=== PATIENT | female | born 1950 | race Caucasian/White ===

== ENCOUNTER 2022-05-01 16:09 | Inpatient (IN) | payer OTHER ==
[~2022-05-01] VITALS: Ht 170.2 cm; Wt 230.0 kg
[2022-05-01 16:22] VITALS: BP_SYST 106
[2022-05-01 18:17] LABS: BASOPHILS % (AUTO) 0.5 % (0.0-2.0); EOSINOPHILS # (AUTO) 0.2 K/uL (0.0-0.4); EOSINOPHILS % (AUTO) 1.8 % (0.0-4.0); HEMATOCRIT 42.1 % (36-48); HEMOGLOBIN 13.8 g/dL (12.0-16.0); LYMPHOCYTES # (AUTO) 1.4 K/uL (1.0-5.5); LYMPHOCYTES % (AUTO) 14.9 % (20.5-51.5); MEAN CORPUSCULAR HEMOGLOBIN 30 pg (27-31); MEAN CORPUSCULAR HGB CONC 33 % (32-36); MEAN CORPUSCULAR VOLUME 90 fL (79.0-98.0); MONOCYTES # (AUTO) 0.6 K/uL (0.0-1.0); MONOCYTES % (AUTO) 6.7 % (1.7-9.3); NEUTROPHILS % (AUTO) 76.1 % (40.0-70.0); PLATELET COUNT (AUTO) 166 K/uL (130-430); RED BLOOD CELL COUNT(AUTO) 4.66 MIL/uL (4.2-6.2); RED CELL DISTRIBUTION WIDTH 18.2 % (9.0-15.0); WHITE BLOOD COUNT (AUTO) 9.2 K/uL (4.8-10.8)
[2022-05-01 18:58] LABS: ANION GAP 4 (5-15); CALCIUM 9.3 mg/dL (8.4-11.0); CHLORIDE 100 mmol/L (98-107); CREATININE 0.97 mg/dL (0.55-1.30); GLUCOSE 102 mg/dL (70-99); UREA NITROGEN, BLOOD 28 mg/dL (8-21)
[2022-05-01 19:00] LABS: ALANINE AMINOTRANSFERASE 10 U/L (12-78); ALBUMIN 3.1 g/dL (3.4-4.8); ASPARTATE AMINOTRANSFERASE 19 U/L (10-37); PHOSPHORUS 4.2 mg/dL (2.7-4.5); TOTAL BILIRUBIN 0.8 mg/dL (0.0-1.0)
[2022-05-01] MEDS ORDERED: HYDROcodone/ACETAMIN 5-325 MG TAB (NORCO/ VICODIN) PO PRN (22:00)
[2022-05-01] MEDS ORDERED: NORMAL SALINE 5 ML DISP.SYRIN IVF SCH (22:00)
[2022-05-01] MEDS ORDERED: ONDANSETRON HCL 4 MG/2 ML VIAL IVP PRN (22:00)
[2022-05-01] MEDS ORDERED: NALOXONE HCL 0.4 MG/ML AMP (NARCAN) IVP PRN ×2 (22:00)
[2022-05-01] MEDS: NORMAL SALINE 5 ML DISP.SYRIN IVF SCH (22:13)
[2022-05-02] MEDS: NORMAL SALINE 5 ML DISP.SYRIN IVF SCH ×3 (07:04→22:10)
[2022-05-02 08:00] LABS: BASOPHILS % (AUTO) 0.4 % (0.0-2.0); EOSINOPHILS # (AUTO) 0.1 K/uL (0.0-0.4); EOSINOPHILS % (AUTO) 1.8 % (0.0-4.0); HEMATOCRIT 41.8 % (36-48); HEMOGLOBIN 13.8 g/dL (12.0-16.0); LYMPHOCYTES # (AUTO) 1.4 K/uL (1.0-5.5); LYMPHOCYTES % (AUTO) 18.4 % (20.5-51.5); MEAN CORPUSCULAR HEMOGLOBIN 30 pg (27-31); MEAN CORPUSCULAR HGB CONC 33 % (32-36); MEAN CORPUSCULAR VOLUME 90 fL (79.0-98.0); MONOCYTES # (AUTO) 0.6 K/uL (0.0-1.0); MONOCYTES % (AUTO) 7.6 % (1.7-9.3); NEUTROPHILS # (AUTO) 5.4 K/uL (1.8-7.7); NEUTROPHILS % (AUTO) 71.8 % (40.0-70.0); PLATELET COUNT (AUTO) 159 K/uL (130-430); RED BLOOD CELL COUNT(AUTO) 4.65 MIL/uL (4.2-6.2); WHITE BLOOD COUNT (AUTO) 7.5 K/uL (4.8-10.8)
[2022-05-02 08:46] LABS: ALANINE AMINOTRANSFERASE 8 U/L (12-78); ALBUMIN 3.1 g/dL (3.4-4.8); ANION GAP 3 (5-15); ASPARTATE AMINOTRANSFERASE 17 U/L (10-37); CALCIUM 9.4 mg/dL (8.4-11.0); CHLORIDE 102 mmol/L (98-107); CREATININE 0.77 mg/dL (0.55-1.30); GLUCOSE 92 mg/dL (70-99); TOTAL BILIRUBIN 1.1 mg/dL (0.0-1.0); UREA NITROGEN, BLOOD 25 mg/dL (8-21)
[2022-05-02] MEDS ORDERED: LEVO150T PO (16:22)
[2022-05-02] MEDS ORDERED: FORM20VI IH (16:22)
[2022-05-02] MEDS ORDERED: POTA-197 PO (16:22)
[2022-05-02] MEDS ORDERED: MONT-40 PO (16:22)
[2022-05-02] MEDS ORDERED: METO25TA3 PO (16:22)
[2022-05-02] MEDS ORDERED: BUME0.5T6 PO (16:22)
[2022-05-02] MEDS ORDERED: LISI-209 PO (16:22)
[2022-05-02 18:43] VITALS: BP_SYST 111
[2022-05-02 19:00] VITALS: BP_SYST 111
[2022-05-02 20:00] VITALS: BP_SYST 111
[2022-05-03 00:10] VITALS: BP_SYST 111
[2022-05-03 01:05] VITALS: BP_SYST 141
[2022-05-03] MEDS: LORazepam 2 MG/ML VIAL IVP PRN (01:39)
[2022-05-03 06:31] LABS: BASOPHILS % (AUTO) 0.4 % (0.0-2.0); EOSINOPHILS # (AUTO) 0.2 K/uL (0.0-0.4); HEMATOCRIT 41.3 % (36-48); HEMOGLOBIN 13.6 g/dL (12.0-16.0); LYMPHOCYTES # (AUTO) 1.2 K/uL (1.0-5.5); LYMPHOCYTES % (AUTO) 15.7 % (20.5-51.5); MEAN CORPUSCULAR HEMOGLOBIN 30 pg (27-31); MEAN CORPUSCULAR HGB CONC 33 % (32-36); MEAN CORPUSCULAR VOLUME 90 fL (79.0-98.0); MONOCYTES # (AUTO) 0.5 K/uL (0.0-1.0); MONOCYTES % (AUTO) 7.1 % (1.7-9.3); NEUTROPHILS # (AUTO) 5.7 K/uL (1.8-7.7); NEUTROPHILS % (AUTO) 74.8 % (40.0-70.0); PLATELET COUNT (AUTO) 158 K/uL (130-430); RED BLOOD CELL COUNT(AUTO) 4.57 MIL/uL (4.2-6.2); RED CELL DISTRIBUTION WIDTH 18.1 % (9.0-15.0); WHITE BLOOD COUNT (AUTO) 7.6 K/uL (4.8-10.8)
[2022-05-03 06:56] LABS: ANION GAP 6 (5-15); CALCIUM 8.9 mg/dL (8.4-11.0); CHLORIDE 102 mmol/L (98-107); CREATININE 0.65 mg/dL (0.55-1.30); GLUCOSE 73 mg/dL (70-99); UREA NITROGEN, BLOOD 22 mg/dL (8-21)
[2022-05-03 07:00] VITALS: BP_SYST 123
[2022-05-03] MEDS: NORMAL SALINE 5 ML DISP.SYRIN IVF SCH ×2 (07:32→14:05)
[2022-05-03] MEDS: ACETAMINOPHEN 325 MG TABLET PO PRN (09:54)
[2022-05-03 11:41] VITALS: BP_SYST 122
[2022-05-03 16:35] VITALS: BP_SYST 129
[2022-05-04] VITALS: BP_SYST 144
[2022-05-04] MEDS: LORazepam 2 MG/ML VIAL IVP PRN (01:12)
[2022-05-04] MEDS: NORMAL SALINE 5 ML DISP.SYRIN IVF SCH ×4 (01:14→21:12)
[2022-05-04 04:00] VITALS: BP_SYST 148
[2022-05-04 06:11] LABS: BASOPHILS % (AUTO) 0.4 % (0.0-2.0); EOSINOPHILS # (AUTO) 0.2 K/uL (0.0-0.4); EOSINOPHILS % (AUTO) 2.3 % (0.0-4.0); HEMATOCRIT 41.5 % (36-48); HEMOGLOBIN 13.7 g/dL (12.0-16.0); LYMPHOCYTES # (AUTO) 1.1 K/uL (1.0-5.5); MEAN CORPUSCULAR HEMOGLOBIN 30 pg (27-31); MEAN CORPUSCULAR HGB CONC 33 % (32-36); MEAN CORPUSCULAR VOLUME 90 fL (79.0-98.0); MONOCYTES # (AUTO) 0.5 K/uL (0.0-1.0); MONOCYTES % (AUTO) 7.1 % (1.7-9.3); NEUTROPHILS # (AUTO) 5.7 K/uL (1.8-7.7); NEUTROPHILS % (AUTO) 75.2 % (40.0-70.0); PLATELET COUNT (AUTO) 153 K/uL (130-430); RED CELL DISTRIBUTION WIDTH 18.4 % (9.0-15.0); WHITE BLOOD COUNT (AUTO) 7.6 K/uL (4.8-10.8)
[2022-05-04 06:28] LABS: ANION GAP 3 (5-15); CALCIUM 8.7 mg/dL (8.4-11.0); CHLORIDE 102 mmol/L (98-107); CREATININE 0.74 mg/dL (0.55-1.30); GLUCOSE 85 mg/dL (70-99); UREA NITROGEN, BLOOD 20 mg/dL (8-21)
[2022-05-04] MEDS ORDERED: LORazepam 2 MG/ML VIAL IVP PRN (11:00)
[2022-05-04] MEDS: IPRATROPIUM BROM 0.5 MG/2.5 ML VIAL.NEB (ATROVENT) INH SCH ×4 (11:24→23:20)
[2022-05-04] MEDS: ALBUTEROL SULFATE 0.083% 2.5 MG/3 ML VIAL.NEB INH SCH ×4 (11:24→23:20)
[2022-05-04 12:00] VITALS: BP_SYST 146
[2022-05-04 16:00] VITALS: BP_SYST 147
[2022-05-04 17:07] LABS: BILIRUBIN,URINE NEGATIVE (NEGATIVE); BLOOD, URINE 2+ (NEGATIVE); CLARITY/URINE CLOUDY (CLEAR); COLOR,URINE YELLOW (YELLOW); GLUCOSE,URINE NEGATIVE (NEGATIVE); KETONES,URINE NEGATIVE (NEGATIVE); LEUKOCYTE ESTERASE ,URINE 2+ (NEGATIVE); NITRITE, URINE POSITIVE (NEGATIVE); PROTEIN URINE NEGATIVE (NEGATIVE)
[2022-05-04 17:30] LABS: BACTERIA,URINE MANY /HPF (None Seen); MUCUS,URINE None Seen /LPF (None Seen); URINE AMORPHOUS URATE 2+ /HPF (None Seen); WBC,URINE 50-80 /HPF (0-3)
[2022-05-04] MEDS: D5/0.45 NS 1,000 ML IV SCH (18:20)
[2022-05-04 18:39] LABS: THYROID STIMULATING HORMONE 41.12 uIu/mL (0.36-3.74)
[2022-05-04] MEDS: ACETAMINOPHEN 325 MG TABLET PO PRN (18:45)
[2022-05-04 20:00] VITALS: BP_SYST 142
[2022-05-04] MEDS: methylPREDNISolone SOD SUCC/PF 62.5 MG/ML VIAL IVP SCH (21:03)
[2022-05-04] MEDS: AZITHROMYCIN 500 MG in NS 250 ML IV SCH (21:04)
[2022-05-04] MEDS: cefTRIAXone 1 GM in D5W 50 ML IV SCH (21:04)
[2022-05-05 00:23] VITALS: BP_SYST 143
[2022-05-05] MEDS: D5/0.45 NS 1,000 ML IV SCH ×3 (01:22→17:13)
[2022-05-05] MEDS: HYDROcodone/ACETAMIN 10-325 MG TAB PO PRN ×2 (02:46→22:30)
[2022-05-05] MEDS: ALBUTEROL SULFATE 0.083% 2.5 MG/3 ML VIAL.NEB INH SCH ×6 (03:11→23:02)
[2022-05-05] MEDS: IPRATROPIUM BROM 0.5 MG/2.5 ML VIAL.NEB (ATROVENT) INH SCH ×6 (03:11→23:02)
[2022-05-05] MEDS: NORMAL SALINE 5 ML DISP.SYRIN IVF SCH ×3 (06:06→22:22)
[2022-05-05 06:07] LABS: BASOPHILS % (AUTO) 0.1 % (0.0-2.0); EOSINOPHILS % (AUTO) 0.1 % (0.0-4.0); HEMATOCRIT 41.4 % (36-48); HEMOGLOBIN 13.5 g/dL (12.0-16.0); LYMPHOCYTES # (AUTO) 0.4 K/uL (1.0-5.5); LYMPHOCYTES % (AUTO) 6.4 % (20.5-51.5); MEAN CORPUSCULAR HEMOGLOBIN 30 pg (27-31); MEAN CORPUSCULAR HGB CONC 33 % (32-36); MEAN CORPUSCULAR VOLUME 91 fL (79.0-98.0); MONOCYTES # (AUTO) 0.1 K/uL (0.0-1.0); MONOCYTES % (AUTO) 1.3 % (1.7-9.3); NEUTROPHILS # (AUTO) 6.1 K/uL (1.8-7.7); NEUTROPHILS % (AUTO) 92.1 % (40.0-70.0); PLATELET COUNT (AUTO) 143 K/uL (130-430); RED BLOOD CELL COUNT(AUTO) 4.56 MIL/uL (4.2-6.2); RED CELL DISTRIBUTION WIDTH 17.9 % (9.0-15.0); WHITE BLOOD COUNT (AUTO) 6.7 K/uL (4.8-10.8)
[2022-05-05 06:23] LABS: ANION GAP 6 (5-15); CALCIUM 8.5 mg/dL (8.4-11.0); CHLORIDE 102 mmol/L (98-107); CREATININE 0.73 mg/dL (0.55-1.30); GLUCOSE 169 mg/dL (70-99); UREA NITROGEN, BLOOD 15 mg/dL (8-21)
[2022-05-05 09:00] VITALS: BP_SYST 116
[2022-05-05] MEDS ORDERED: ENOXAPARIN SODIUM 30 MG/0.3 ML SYRINGE SUBCUT SCH (09:00)
[2022-05-05] MEDS ORDERED: METOPROLOL SUCCINATE 25 MG TAB.SR.24H (TOPROL XL) PO ONE (10:00)
[2022-05-05] MEDS ORDERED: lisinopriL 5 MG TABLET PO ONE (10:00)
[2022-05-05] MEDS: ACETAMINOPHEN 325 MG TABLET PO PRN (10:15)
[2022-05-05] MEDS: FUROSEMIDE 20 MG/2 ML VIAL IVP SCH (10:17)
[2022-05-05] MEDS: methylPREDNISolone SOD SUCC/PF 62.5 MG/ML VIAL IVP SCH ×2 (10:18→22:21)
[2022-05-05 12:00] VITALS: BP_SYST 128
[2022-05-05] MEDS ORDERED: *HEPARIN PER PHARMACY XX PRN (13:15)
[2022-05-05] MEDS ORDERED: HEPARIN SODIUM,PORCINE 5,000 UNITS/ML VIAL IVP ONE (13:45)
[2022-05-05] MEDS ORDERED: HEPARIN 25,000 UNITS in 250 ML PREMIX IV PRN (13:45)
[2022-05-05] MEDS ORDERED: HEPARIN SODIUM,PORCINE 3000 UNITS/0.6 ML BOLUS IVP PRN (13:45)
[2022-05-05] MEDS ORDERED: HEPARIN SODIUM,PORCINE 2000 UNITS/0.4 ML BOLUS IVP PRN (13:45)
[2022-05-05 15:32] VITALS: BP_SYST 107
[2022-05-05] MEDS: MONTELUKAST 10 MG TABLET PO SCH (17:12)
[2022-05-05] MEDS: cefTRIAXone 1 GM in D5W 50 ML IV SCH (22:20)
[2022-05-05] MEDS: AZITHROMYCIN 500 MG in NS 250 ML IV SCH (22:21)
[2022-05-06] MEDS: HYDROcodone/ACETAMIN 10-325 MG TAB PO PRN ×2 (02:53→13:35)
[2022-05-06] MEDS: ALBUTEROL SULFATE 0.083% 2.5 MG/3 ML VIAL.NEB INH SCH ×6 (03:05→23:38)
[2022-05-06] MEDS: IPRATROPIUM BROM 0.5 MG/2.5 ML VIAL.NEB (ATROVENT) INH SCH ×6 (03:06→23:38)
[2022-05-06 06:27] LABS: ALANINE AMINOTRANSFERASE 11 U/L (12-78); ANION GAP 7 (5-15); ASPARTATE AMINOTRANSFERASE 13 U/L (10-37); C-REACTIVE PROTEIN QUANT 2.2 mg/dL (0-0.5); CALCIUM 8.6 mg/dL (8.4-11.0); CHLORIDE 101 mmol/L (98-107); CREATININE 0.56 mg/dL (0.55-1.30); GLUCOSE 141 mg/dL (70-99); TOTAL BILIRUBIN 0.6 mg/dL (0.0-1.0); UREA NITROGEN, BLOOD 18 mg/dL (8-21)
[2022-05-06 06:35] LABS: BASOPHILS # (AUTO) 0.1 K/uL (0.0-0.2); BASOPHILS % (AUTO) 0.6 % (0.0-2.0); HEMATOCRIT 40.1 % (36-48); HEMOGLOBIN 13.3 g/dL (12.0-16.0); LYMPHOCYTES # (AUTO) 0.6 K/uL (1.0-5.5); LYMPHOCYTES % (AUTO) 5.7 % (20.5-51.5); MEAN CORPUSCULAR HEMOGLOBIN 30 pg (27-31); MEAN CORPUSCULAR HGB CONC 33 % (32-36); MEAN CORPUSCULAR VOLUME 91 fL (79.0-98.0); MONOCYTES # (AUTO) 0.2 K/uL (0.0-1.0); MONOCYTES % (AUTO) 2.5 % (1.7-9.3); NEUTROPHILS % (AUTO) 91.2 % (40.0-70.0); PLATELET COUNT (AUTO) 166 K/uL (130-430); RED BLOOD CELL COUNT(AUTO) 4.43 MIL/uL (4.2-6.2); RED CELL DISTRIBUTION WIDTH 17.8 % (9.0-15.0); WHITE BLOOD COUNT (AUTO) 9.8 K/uL (4.8-10.8)
[2022-05-06] MEDS: LEVOTHYROXINE SODIUM 0.15 MG TABLET PO SCH (07:00)
[2022-05-06] MEDS: NORMAL SALINE 5 ML DISP.SYRIN IVF SCH ×3 (07:01→21:23)
[2022-05-06] MEDS: D5/0.45 NS 1,000 ML IV SCH (07:04)
[2022-05-06 08:12] VITALS: BP_SYST 139
[2022-05-06] MEDS: methylPREDNISolone SOD SUCC/PF 62.5 MG/ML VIAL IVP SCH ×2 (09:54→20:45)
[2022-05-06] MEDS: lisinopriL 5 MG TABLET PO SCH (09:55)
[2022-05-06] MEDS: FUROSEMIDE 20 MG/2 ML VIAL IVP SCH (09:55)
[2022-05-06] MEDS: METOPROLOL SUCCINATE 25 MG TAB.SR.24H (TOPROL XL) PO SCH (09:56)
[2022-05-06 10:01] VITALS: BP_SYST 139
[2022-05-06 10:21] LABS: ERYTHROCYTE SEDIMENTATION RATE 12 MM/HR (0-20)
[2022-05-06 11:16] VITALS: BP_SYST 112; BP_SYST 98
[2022-05-06 17:09] VITALS: BP_SYST 116
[2022-05-06] MEDS: MONTELUKAST 10 MG TABLET PO SCH (18:12)
[2022-05-06 20:00] VITALS: BP_SYST 143
[2022-05-06] MEDS: cefTRIAXone 1 GM in D5W 50 ML IV SCH (20:29)
[2022-05-06] MEDS: APIXABAN 2.5 MG TABLET PO SCH (20:44)
[2022-05-06] MEDS: AZITHROMYCIN 500 MG in NS 250 ML IV SCH (21:23)
[2022-05-07] MEDS: LORazepam 2 MG/ML VIAL IVP PRN (00:30)
[2022-05-07] MEDS: ACETAMINOPHEN 325 MG TABLET PO PRN ×2 (00:31→22:45)
[2022-05-07] MEDS: IPRATROPIUM BROM 0.5 MG/2.5 ML VIAL.NEB (ATROVENT) INH SCH ×6 (03:26→23:32)
[2022-05-07] MEDS: ALBUTEROL SULFATE 0.083% 2.5 MG/3 ML VIAL.NEB INH SCH ×6 (03:26→23:32)
[2022-05-07 04:00] VITALS: BP_SYST 136
[2022-05-07] MEDS: LEVOTHYROXINE SODIUM 0.15 MG TABLET PO SCH ×2 (06:54→09:38)
[2022-05-07] MEDS: NORMAL SALINE 5 ML DISP.SYRIN IVF SCH ×3 (06:54→20:39)
[2022-05-07 08:00] VITALS: BP_SYST 164
[2022-05-07 08:16] LABS: HEMATOCRIT 41.2 % (36-48); HEMOGLOBIN 13.4 g/dL (12.0-16.0); LYMPHOCYTES # (AUTO) 0.7 K/uL (1.0-5.5); LYMPHOCYTES % (AUTO) 7.1 % (20.5-51.5); MEAN CORPUSCULAR HEMOGLOBIN 30 pg (27-31); MEAN CORPUSCULAR HGB CONC 33 % (32-36); MEAN CORPUSCULAR VOLUME 92 fL (79.0-98.0); MONOCYTES # (AUTO) 0.4 K/uL (0.0-1.0); MONOCYTES % (AUTO) 3.9 % (1.7-9.3); NEUTROPHILS # (AUTO) 8.6 K/uL (1.8-7.7); PLATELET COUNT (AUTO) 171 K/uL (130-430); RED BLOOD CELL COUNT(AUTO) 4.49 MIL/uL (4.2-6.2); WHITE BLOOD COUNT (AUTO) 9.7 K/uL (4.8-10.8)
[2022-05-07 08:45] LABS: ANION GAP 6 (5-15); C-REACTIVE PROTEIN QUANT 0.6 mg/dL (0-0.5); CHLORIDE 103 mmol/L (98-107); CREATININE 0.67 mg/dL (0.55-1.30); GLUCOSE 139 mg/dL (70-99); UREA NITROGEN, BLOOD 20 mg/dL (8-21)
[2022-05-07] MEDS: APIXABAN 2.5 MG TABLET PO SCH ×2 (09:37→20:39)
[2022-05-07] MEDS: METOPROLOL SUCCINATE 25 MG TAB.SR.24H (TOPROL XL) PO SCH (09:38)
[2022-05-07] MEDS: lisinopriL 5 MG TABLET PO SCH (09:39)
[2022-05-07] MEDS: FUROSEMIDE 20 MG/2 ML VIAL IVP SCH (09:40)
[2022-05-07] MEDS: methylPREDNISolone SOD SUCC/PF 62.5 MG/ML VIAL IVP SCH ×2 (09:41→20:38)
[2022-05-07 11:40] VITALS: BP_SYST 147
[2022-05-07 13:37] LABS: ERYTHROCYTE SEDIMENTATION RATE 10 MM/HR (0-20)
[2022-05-07 15:20] VITALS: BP_SYST 131
[2022-05-07 20:00] VITALS: BP_SYST 131
[2022-05-07] MEDS: cefTRIAXone 1 GM in D5W 50 ML IV SCH (20:38)
[2022-05-07] MEDS: AZITHROMYCIN 500 MG in NS 250 ML IV SCH (22:36)
[2022-05-08 01:03] VITALS: BP_SYST 159
[2022-05-08] MEDS: ALBUTEROL SULFATE 0.083% 2.5 MG/3 ML VIAL.NEB INH SCH ×6 (03:15→23:55)
[2022-05-08] MEDS: IPRATROPIUM BROM 0.5 MG/2.5 ML VIAL.NEB (ATROVENT) INH SCH ×5 (03:15→23:55)
[2022-05-08] MEDS: NORMAL SALINE 5 ML DISP.SYRIN IVF SCH ×3 (05:35→20:56)
[2022-05-08] MEDS: METOPROLOL SUCCINATE 25 MG TAB.SR.24H (TOPROL XL) PO SCH (09:16)
[2022-05-08] MEDS: lisinopriL 5 MG TABLET PO SCH (09:17)
[2022-05-08] MEDS: methylPREDNISolone SOD SUCC/PF 62.5 MG/ML VIAL IVP SCH ×2 (09:19→20:53)
[2022-05-08] MEDS: FUROSEMIDE 20 MG/2 ML VIAL IVP SCH (09:20)
[2022-05-08] MEDS: APIXABAN 2.5 MG TABLET PO SCH ×2 (09:30→20:55)
[2022-05-08 12:05] VITALS: BP_SYST 125
[2022-05-08 17:32] VITALS: BP_SYST 135
[2022-05-08] MEDS: MONTELUKAST 10 MG TABLET PO SCH (19:02)
[2022-05-08 20:25] VITALS: BP_SYST 152
[2022-05-08] MEDS: ACETAMINOPHEN 325 MG TABLET PO PRN (20:53)
[2022-05-08] MEDS: cefTRIAXone 1 GM in D5W 50 ML IV SCH (20:53)
[2022-05-08] MEDS: LORazepam 2 MG/ML VIAL IVP PRN (20:55)
[2022-05-08] MEDS: AZITHROMYCIN 500 MG in NS 250 ML IV SCH (21:54)
[2022-05-09 00:10] VITALS: BP_SYST 149
[2022-05-09] MEDS: IPRATROPIUM BROM 0.5 MG/2.5 ML VIAL.NEB (ATROVENT) INH SCH ×6 (03:00→23:25)
[2022-05-09] MEDS: ALBUTEROL SULFATE 0.083% 2.5 MG/3 ML VIAL.NEB INH SCH ×6 (03:00→23:25)
[2022-05-09] MEDS: LEVOTHYROXINE SODIUM 0.15 MG TABLET PO SCH (06:19)
[2022-05-09] MEDS: NORMAL SALINE 5 ML DISP.SYRIN IVF SCH ×3 (06:19→21:27)
[2022-05-09 08:00] VITALS: BP_SYST 143
[2022-05-09] MEDS: FUROSEMIDE 20 MG/2 ML VIAL IVP SCH (10:17)
[2022-05-09] MEDS: methylPREDNISolone SOD SUCC/PF 62.5 MG/ML VIAL IVP SCH ×2 (10:17→20:59)
[2022-05-09] MEDS: METOPROLOL SUCCINATE 25 MG TAB.SR.24H (TOPROL XL) PO SCH (10:18)
[2022-05-09] MEDS: lisinopriL 5 MG TABLET PO SCH (10:18)
[2022-05-09] MEDS: APIXABAN 2.5 MG TABLET PO SCH ×2 (10:20→21:05)
[2022-05-09 10:39] VITALS: BP_SYST 143
[2022-05-09 13:47] VITALS: BP_SYST 139
[2022-05-09 17:55] VITALS: BP_SYST 161
[2022-05-09] MEDS: MONTELUKAST 10 MG TABLET PO SCH (18:22)
[2022-05-09 20:10] VITALS: BP_SYST 139
[2022-05-09] MEDS: cefTRIAXone 1 GM in D5W 50 ML IV SCH (20:59)
[2022-05-10 00:05] VITALS: BP_SYST 139
[2022-05-10] MEDS: LORazepam 2 MG/ML VIAL IVP PRN (02:58)
[2022-05-10] MEDS: ACETAMINOPHEN 325 MG TABLET PO PRN (02:59)
[2022-05-10] MEDS: ALBUTEROL SULFATE 0.083% 2.5 MG/3 ML VIAL.NEB INH SCH ×5 (03:00→20:18)
[2022-05-10] MEDS: IPRATROPIUM BROM 0.5 MG/2.5 ML VIAL.NEB (ATROVENT) INH SCH ×5 (03:00→20:18)
[2022-05-10 06:19] LABS: HEMOGLOBIN 14.1 g/dL (12.0-16.0); LYMPHOCYTES # (AUTO) 0.7 K/uL (1.0-5.5); LYMPHOCYTES % (AUTO) 7.7 % (20.5-51.5); MEAN CORPUSCULAR HEMOGLOBIN 30 pg (27-31); MEAN CORPUSCULAR HGB CONC 34 % (32-36); MEAN CORPUSCULAR VOLUME 90 fL (79.0-98.0); MONOCYTES # (AUTO) 0.5 K/uL (0.0-1.0); MONOCYTES % (AUTO) 5.4 % (1.7-9.3); NEUTROPHILS # (AUTO) 8.4 K/uL (1.8-7.7); NEUTROPHILS % (AUTO) 86.9 % (40.0-70.0); PLATELET COUNT (AUTO) 155 K/uL (130-430); RED BLOOD CELL COUNT(AUTO) 4.67 MIL/uL (4.2-6.2); RED CELL DISTRIBUTION WIDTH 17.7 % (9.0-15.0); WHITE BLOOD COUNT (AUTO) 9.7 K/uL (4.8-10.8)
[2022-05-10] MEDS: LEVOTHYROXINE SODIUM 0.15 MG TABLET PO SCH (06:24)
[2022-05-10] MEDS: NORMAL SALINE 5 ML DISP.SYRIN IVF SCH ×3 (06:24→20:54)
[2022-05-10 06:57] LABS: ANION GAP 6 (5-15); CHLORIDE 101 mmol/L (98-107); CREATININE 0.74 mg/dL (0.55-1.30); GLUCOSE 147 mg/dL (70-99); UREA NITROGEN, BLOOD 29 mg/dL (8-21)
[2022-05-10 08:00] VITALS: BP_SYST 157
[2022-05-10 08:32] LABS: C-REACTIVE PROTEIN QUANT < 0.2 mg/dL (0-0.5)
[2022-05-10] MEDS: lisinopriL 5 MG TABLET PO SCH (09:36)
[2022-05-10] MEDS: FUROSEMIDE 20 MG/2 ML VIAL IVP SCH (09:37)
[2022-05-10] MEDS: METOPROLOL SUCCINATE 25 MG TAB.SR.24H (TOPROL XL) PO SCH (09:37)
[2022-05-10] MEDS: APIXABAN 2.5 MG TABLET PO SCH ×2 (09:38→20:53)
[2022-05-10] MEDS: methylPREDNISolone SOD SUCC/PF 62.5 MG/ML VIAL IVP SCH ×2 (09:38→20:53)
[2022-05-10 11:07] LABS: ERYTHROCYTE SEDIMENTATION RATE 5 MM/HR (0-20)
[2022-05-10 11:20] VITALS: BP_SYST 157
[2022-05-10 15:55] VITALS: BP_SYST 150
[2022-05-10] MEDS: MONTELUKAST 10 MG TABLET PO SCH (17:25)
[2022-05-10 19:50] VITALS: BP_SYST 130
[2022-05-10] MEDS: cefTRIAXone 1 GM in D5W 50 ML IV SCH (20:53)
[2022-05-10] MEDS: HYDROcodone/ACETAMIN 10-325 MG TAB PO PRN (22:16)
[2022-05-11] MEDS: IPRATROPIUM BROM 0.5 MG/2.5 ML VIAL.NEB (ATROVENT) INH SCH ×7 (01:11→23:48)
[2022-05-11] MEDS: ALBUTEROL SULFATE 0.083% 2.5 MG/3 ML VIAL.NEB INH SCH ×6 (01:11→23:47)
[2022-05-11 01:21] VITALS: BP_SYST 136
[2022-05-11] MEDS: LORazepam 2 MG/ML VIAL IVP PRN (02:32)
[2022-05-11] MEDS: LEVOTHYROXINE SODIUM 0.15 MG TABLET PO SCH (06:17)
[2022-05-11] MEDS: NORMAL SALINE 5 ML DISP.SYRIN IVF SCH ×3 (06:18→20:34)
[2022-05-11 06:51] LABS: BASOPHILS % (AUTO) 0.1 % (0.0-2.0); HEMATOCRIT 43.1 % (36-48); HEMOGLOBIN 14.2 g/dL (12.0-16.0); LYMPHOCYTES # (AUTO) 0.7 K/uL (1.0-5.5); LYMPHOCYTES % (AUTO) 6.5 % (20.5-51.5); MEAN CORPUSCULAR HEMOGLOBIN 30 pg (27-31); MEAN CORPUSCULAR HGB CONC 33 % (32-36); MEAN CORPUSCULAR VOLUME 91 fL (79.0-98.0); MONOCYTES # (AUTO) 0.4 K/uL (0.0-1.0); MONOCYTES % (AUTO) 3.9 % (1.7-9.3); NEUTROPHILS # (AUTO) 9.9 K/uL (1.8-7.7); NEUTROPHILS % (AUTO) 89.5 % (40.0-70.0); PLATELET COUNT (AUTO) 160 K/uL (130-430); RED BLOOD CELL COUNT(AUTO) 4.75 MIL/uL (4.2-6.2); RED CELL DISTRIBUTION WIDTH 17.8 % (9.0-15.0)
[2022-05-11 07:47] LABS: ALANINE AMINOTRANSFERASE 36 U/L (12-78); ANION GAP 7 (5-15); ASPARTATE AMINOTRANSFERASE 16 U/L (10-37); CALCIUM 8.4 mg/dL (8.4-11.0); CHLORIDE 99 mmol/L (98-107); CREATININE 0.57 mg/dL (0.55-1.30); GLUCOSE 146 mg/dL (70-99); TOTAL BILIRUBIN 0.5 mg/dL (0.0-1.0); UREA NITROGEN, BLOOD 30 mg/dL (8-21)
[2022-05-11 08:04] LABS: C-REACTIVE PROTEIN QUANT < 0.2 mg/dL (0-0.5)
[2022-05-11 08:46] LABS: ERYTHROCYTE SEDIMENTATION RATE 2 MM/HR (0-20)
[2022-05-11] MEDS: METOPROLOL SUCCINATE 25 MG TAB.SR.24H (TOPROL XL) PO SCH (09:28)
[2022-05-11] MEDS: FUROSEMIDE 20 MG/2 ML VIAL IVP SCH (09:29)
[2022-05-11] MEDS: methylPREDNISolone SOD SUCC/PF 62.5 MG/ML VIAL IVP SCH ×2 (09:29→20:34)
[2022-05-11] MEDS: lisinopriL 5 MG TABLET PO SCH (09:29)
[2022-05-11] MEDS: APIXABAN 2.5 MG TABLET PO SCH ×2 (09:30→20:38)
[2022-05-11 11:23] VITALS: BP_SYST 143
[2022-05-11 16:16] VITALS: BP_SYST 136
[2022-05-11] MEDS: MONTELUKAST 10 MG TABLET PO SCH (18:35)
[2022-05-11 19:00] VITALS: BP_SYST 123
[2022-05-11 20:00] VITALS: BP_SYST 123
[2022-05-11] MEDS: cefTRIAXone 1 GM in D5W 50 ML IV SCH (20:34)
[2022-05-11] MEDS: BENZOCAINE/MENTHOL 1 EACH LOZENGE MM PRN (20:57)
[2022-05-11] MEDS ORDERED: BENZOCAINE/MENTHOL 1 EACH LOZENGE ONE (20:58)
[2022-05-11] MEDS ORDERED: LORazepam 1 MG TABLET PO ONE (23:30)
[2022-05-11] MEDS: ACETAMINOPHEN 325 MG TABLET PO PRN (23:51)
[2022-05-12] VITALS: BP_SYST 127
[2022-05-12] MEDS: IPRATROPIUM BROM 0.5 MG/2.5 ML VIAL.NEB (ATROVENT) INH SCH ×6 (03:05→23:30)
[2022-05-12] MEDS: ALBUTEROL SULFATE 0.083% 2.5 MG/3 ML VIAL.NEB INH SCH ×6 (03:05→23:30)
[2022-05-12] MEDS: NORMAL SALINE 5 ML DISP.SYRIN IVF SCH ×3 (06:06→21:07)
[2022-05-12] MEDS: LEVOTHYROXINE SODIUM 0.15 MG TABLET PO SCH (06:09)
[2022-05-12] MEDS: BENZOCAINE/MENTHOL 1 EACH LOZENGE MM PRN ×2 (06:12→22:55)
[2022-05-12 06:55] LABS: HEMATOCRIT 43.6 % (36-48); HEMOGLOBIN 14.4 g/dL (12.0-16.0); LYMPHOCYTES # (AUTO) 0.8 K/uL (1.0-5.5); LYMPHOCYTES % (AUTO) 6.2 % (20.5-51.5); MEAN CORPUSCULAR HEMOGLOBIN 30 pg (27-31); MEAN CORPUSCULAR HGB CONC 33 % (32-36); MEAN CORPUSCULAR VOLUME 90 fL (79.0-98.0); MONOCYTES # (AUTO) 0.5 K/uL (0.0-1.0); MONOCYTES % (AUTO) 3.9 % (1.7-9.3); NEUTROPHILS % (AUTO) 89.9 % (40.0-70.0); PLATELET COUNT (AUTO) 156 K/uL (130-430); RED BLOOD CELL COUNT(AUTO) 4.84 MIL/uL (4.2-6.2); RED CELL DISTRIBUTION WIDTH 17.5 % (9.0-15.0); WHITE BLOOD COUNT (AUTO) 12.2 K/uL (4.8-10.8)
[2022-05-12 07:17] LABS: ANION GAP 5 (5-15); CALCIUM 8.5 mg/dL (8.4-11.0); CHLORIDE 101 mmol/L (98-107); CREATININE 0.82 mg/dL (0.55-1.30); GLUCOSE 188 mg/dL (70-99); UREA NITROGEN, BLOOD 30 mg/dL (8-21)
[2022-05-12 07:35] LABS: C-REACTIVE PROTEIN QUANT < 0.2 mg/dL (0-0.5)
[2022-05-12] MEDS: FUROSEMIDE 20 MG/2 ML VIAL IVP SCH (09:53)
[2022-05-12] MEDS: methylPREDNISolone SOD SUCC/PF 62.5 MG/ML VIAL IVP SCH ×2 (09:53→21:09)
[2022-05-12] MEDS: APIXABAN 2.5 MG TABLET PO SCH (09:56)
[2022-05-12] MEDS: METOPROLOL SUCCINATE 25 MG TAB.SR.24H (TOPROL XL) PO SCH (09:57)
[2022-05-12] MEDS: lisinopriL 5 MG TABLET PO SCH (09:57)
[2022-05-12 10:38] VITALS: BP_SYST 149
[2022-05-12 10:48] LABS: ERYTHROCYTE SEDIMENTATION RATE 1 MM/HR (0-20)
[2022-05-12 11:35] VITALS: BP_SYST 151
[2022-05-12 16:20] VITALS: BP_SYST 142
[2022-05-12] MEDS: MONTELUKAST 10 MG TABLET PO SCH (18:35)
[2022-05-12 19:00] VITALS: BP_SYST 113
[2022-05-12] MEDS: cefTRIAXone 1 GM in D5W 50 ML IV SCH (21:08)
[2022-05-12] MEDS: ACETAMINOPHEN 325 MG TABLET PO PRN (22:55)
[2022-05-12] MEDS ORDERED: LORazepam 2 MG/ML VIAL IVP ONE (23:45)
[2022-05-13] VITALS (8 sets, daily range): BP systolic 115–139
[2022-05-13] MEDS: IPRATROPIUM BROM 0.5 MG/2.5 ML VIAL.NEB (ATROVENT) INH SCH ×5 (03:22→23:25)
[2022-05-13] MEDS: ALBUTEROL SULFATE 0.083% 2.5 MG/3 ML VIAL.NEB INH SCH ×6 (03:22→23:25)
[2022-05-13] MEDS: LEVOTHYROXINE SODIUM 0.15 MG TABLET PO SCH (06:55)
[2022-05-13] MEDS: NORMAL SALINE 5 ML DISP.SYRIN IVF SCH ×3 (06:56→22:19)
[2022-05-13 08:12] LABS: HEMATOCRIT 43.9 % (36-48); HEMOGLOBIN 14.5 g/dL (12.0-16.0); LYMPHOCYTES # (AUTO) 0.9 K/uL (1.0-5.5); LYMPHOCYTES % (AUTO) 6.8 % (20.5-51.5); MEAN CORPUSCULAR HEMOGLOBIN 30 pg (27-31); MEAN CORPUSCULAR HGB CONC 33 % (32-36); MEAN CORPUSCULAR VOLUME 90 fL (79.0-98.0); MONOCYTES # (AUTO) 0.8 K/uL (0.0-1.0); MONOCYTES % (AUTO) 5.9 % (1.7-9.3); NEUTROPHILS # (AUTO) 11.8 K/uL (1.8-7.7); NEUTROPHILS % (AUTO) 87.3 % (40.0-70.0); PLATELET COUNT (AUTO) 158 K/uL (130-430); RED CELL DISTRIBUTION WIDTH 17.9 % (9.0-15.0); WHITE BLOOD COUNT (AUTO) 13.5 K/uL (4.8-10.8)
[2022-05-13] MEDS: methylPREDNISolone SOD SUCC/PF 62.5 MG/ML VIAL IVP SCH ×2 (08:24→22:17)
[2022-05-13] MEDS: METOPROLOL SUCCINATE 25 MG TAB.SR.24H (TOPROL XL) PO SCH (08:24)
[2022-05-13] MEDS: FUROSEMIDE 20 MG/2 ML VIAL IVP SCH (08:24)
[2022-05-13] MEDS: lisinopriL 5 MG TABLET PO SCH (08:25)
[2022-05-13] MEDS: ACETAMINOPHEN 325 MG TABLET PO PRN (08:26)
[2022-05-13 08:41] LABS: ALANINE AMINOTRANSFERASE 32 U/L (12-78); ANION GAP 4 (5-15); ASPARTATE AMINOTRANSFERASE 11 U/L (10-37); CALCIUM 8.6 mg/dL (8.4-11.0); CHLORIDE 100 mmol/L (98-107); CREATININE 0.65 mg/dL (0.55-1.30); GLUCOSE 143 mg/dL (70-99); TOTAL BILIRUBIN 0.6 mg/dL (0.0-1.0); UREA NITROGEN, BLOOD 33 mg/dL (8-21)
[2022-05-13 09:43] LABS: C-REACTIVE PROTEIN QUANT < 0.2 mg/dL (0-0.5)
[2022-05-13] MEDS ORDERED: LEVO150T PO (10:10)
[2022-05-13] MEDS ORDERED: MONT-40 PO (10:10)
[2022-05-13] MEDS ORDERED: IPRA0.2S53 INH (10:10)
[2022-05-13] MEDS ORDERED: ALBU2.5V7 INH (10:10)
[2022-05-13 10:27] LABS: ERYTHROCYTE SEDIMENTATION RATE 2 MM/HR (0-20)
[2022-05-13] MEDS: BENZOCAINE/MENTHOL 1 EACH LOZENGE MM PRN (11:04)
[2022-05-13] MEDS: MONTELUKAST 10 MG TABLET PO SCH (18:06)
[2022-05-13] MEDS: cefTRIAXone 1 GM in D5W 50 ML IV SCH (20:24)
== END 2022-05-14 00:30 | disposition home health service (06) | DRG 871 ==
LOC: SED 16:09 → SMU 21:24
PROVIDERS: ADMIT Preventive Medicine Preventive Medicine/Occupational Environmental Medicine; ATTEND Preventive Medicine Preventive Medicine/Occupational Environmental Medicine
PROC: 5A09357 Assistance with Respiratory Ventilation, Less than 24 Consecutive Hours, Continuous Positive Airway Pressure (ICD-10-PCS; principal; 2022-05-03)
PROC: 5A09357 Assistance with Respiratory Ventilation, Less than 24 Consecutive Hours, Continuous Positive Airway Pressure (ICD-10-PCS; 2022-05-04)
PROC: 5A09357 Assistance with Respiratory Ventilation, Less than 24 Consecutive Hours, Continuous Positive Airway Pressure (ICD-10-PCS; 2022-05-05)
PROC: 5A09357 Assistance with Respiratory Ventilation, Less than 24 Consecutive Hours, Continuous Positive Airway Pressure (ICD-10-PCS; 2022-05-06)
PROC: 5A09357 Assistance with Respiratory Ventilation, Less than 24 Consecutive Hours, Continuous Positive Airway Pressure (ICD-10-PCS; 2022-05-07)
PROC: 5A09357 Assistance with Respiratory Ventilation, Less than 24 Consecutive Hours, Continuous Positive Airway Pressure (ICD-10-PCS; 2022-05-08)
PROC: 5A09357 Assistance with Respiratory Ventilation, Less than 24 Consecutive Hours, Continuous Positive Airway Pressure (ICD-10-PCS; 2022-05-09)
PROC: 5A09357 Assistance with Respiratory Ventilation, Less than 24 Consecutive Hours, Continuous Positive Airway Pressure (ICD-10-PCS; 2022-05-10)
PROC: 5A09357 Assistance with Respiratory Ventilation, Less than 24 Consecutive Hours, Continuous Positive Airway Pressure (ICD-10-PCS; 2022-05-11)
PROC: 5A09357 Assistance with Respiratory Ventilation, Less than 24 Consecutive Hours, Continuous Positive Airway Pressure (ICD-10-PCS; 2022-05-12)
PROC: 5A09357 Assistance with Respiratory Ventilation, Less than 24 Consecutive Hours, Continuous Positive Airway Pressure (ICD-10-PCS; 2022-05-13)
DX: A41.9 Sepsis, unspecified organism (principal); I50.43 Acute on chronic combined systolic (congestive) and diastolic (congestive) heart failure; J96.21 Acute and chronic respiratory failure with hypoxia; J18.9 Pneumonia, unspecified organism; E66.2 Morbid (severe) obesity with alveolar hypoventilation; Z68.45 Body mass index [BMI] 70 or greater, adult; N39.0 Urinary tract infection, site not specified; E88.09 Other disorders of plasma-protein metabolism, not elsewhere classified; I48.91 Unspecified atrial fibrillation; I25.10 Atherosclerotic heart disease of native coronary artery without angina pectoris; R53.81 Other malaise; I11.0 Hypertensive heart disease with heart failure; Z20.822 Contact with and (suspected) exposure to COVID-19; B96.20 Unspecified Escherichia coli [E. coli] as the cause of diseases classified elsewhere; B96.89 Other specified bacterial agents as the cause of diseases classified elsewhere; J44.9 Chronic obstructive pulmonary disease, unspecified; Z79.01 Long term (current) use of anticoagulants; Z95.818 Presence of other cardiac implants and grafts
CPT/HCPCS: 36415; 36600; 71045; 80048; 80053; 81000; 82550; 82803-TC; 83735; 83880; 84100; 84443; 84484; 85025; 85651-TC; 85730-TC; 86140; 87040; 87081; 87086; 93005; 93306; 94640; 94660; 94760; 97110-GP; 97116-GP; 97530-GP; 99285; J0456; J0696; J1644; J1650; J1940; J2060; J2405; J2930; J7050; J7060; J7613